=== PATIENT | male | born 1990 | race Caucasian/White ===

== ENCOUNTER 2017-02-15 09:27 | Emergency (ER) | payer OTHER ==
[~2017-02-15] VITALS: Ht 174 cm; Wt 82.7 kg
[~2017-02-15 09:27] MED LIST: DOXYCYCL HYC100 MG PO; NAPROXEN EC500 MG OR; NO HOME MEDS; PERCOCET1 TA4 OR; ROCEPHIN 2250 MG/VIA IM
[2017-02-15 11:00] VITALS: BP 146/97
== END 2017-02-15 11:00 | disposition home or self-care (01) | DRG 951 ==
LOC: ED 09:27
DX: Z20.811 Contact with and (suspected) exposure to meningococcus (principal)